=== PATIENT | female | born 1995 | race Native Hawaiian/Other Pacific Islander ===

== ENCOUNTER 2018-12-21 15:31 | Emergency (ER) | payer OTHER ==
[~2018-12-21] VITALS: Ht 172.7 cm; Wt 91.6 kg
[2018-12-21 15:37] VITALS: BP 129/79; TEMP 98.9
[2018-12-21 16:20] LABS: POTASSIUM 3.9 mmol/L (3.6-5.2)
[2018-12-21 16:33] LABS: PLATELET COUNT 259 K/uL (152-353)
== END 2018-12-21 18:43 | disposition home or self-care (01) ==
LOC: ED 15:31
PROVIDERS: Emergency Medicine
DX: R10.2 Pelvic and perineal pain (principal)
CPT/HCPCS: 36415; 80053; 81000; 85027; 87088; 99284

== ENCOUNTER 2019-01-03 23:42 | Emergency (ER) | payer OTHER | END 2019-01-04 01:23 | disposition home or self-care (01) | LOC: ED 23:42 | DX: R10.9 Unspecified abdominal pain (principal) | CPT/HCPCS: 99281 ==